=== PATIENT | female | born 1985 | race Caucasian/White ===

== ENCOUNTER 2018-06-11 01:49 | Emergency (ER) | payer SELFPAY ==
[~2018-06-11] VITALS: Ht 170.2 cm; Wt 113.4 kg
[2018-06-11 01:55] VITALS: Ht 170.2 cm; Wt 113.4 kg
[2018-06-11 03:21] VITALS: BP 139/60
== END 2018-06-11 03:22 | disposition left against medical advice (07) ==
LOC: ED 01:49
DX: R06.02 Shortness of breath (principal); R09.89 Other specified symptoms and signs involving the circulatory and respiratory systems; F41.9 Anxiety disorder, unspecified
CPT/HCPCS: 83880; 84439

== ENCOUNTER 2019-12-15 13:43 | Emergency (ER) | payer SELFPAY ==
[~2019-12-15] VITALS: Ht 170.2 cm; Wt 117.5 kg
[2019-12-15 13:56] VITALS: Ht 170.2 cm; Wt 117.5 kg
[2019-12-15 15:02] LABS: BASOPHIL % 0.8 % (0-2)
[2019-12-15 15:07] LABS: PLATELET COUNT 452 x10^3mcL (130-400); RED CELL DISTRIBUTION WIDTH 20.1 % (11.5-14.5)
[2019-12-15 15:19] LABS: rbc morphology (normal/abnorm) ABNORMAL (NORMAL)
[2019-12-15 15:20] LABS: ovalocyte/elliptocyte 1+
[2019-12-15 15:21] LABS: ALBUMIN 3.5 g/dL (3.4-5.0); ALKALINE PHOSPHATASE 83 U/L (46-116); ALT/SGPT 23 U/L (14-59); AST/SGOT 15 U/L (15-37); BILIRUBIN TOTAL 0.1 mg/dL (0.20-1.00); CALCIUM 8.2 mg/dL (8.5-10.1); CARBON DIOXIDE 25.6 mmol/L (21-32); CHLORIDE SERUM 106 mmol/L (98-107); CREATININE SERUM 0.9 mg/dL (0.6-1.0); GFR1 > 60 mL/min; GLUCOSE SERUM 115 mg/dL (74-106); POTASSIUM SERUM 3.7 mmol/L (3.5-5.1); SODIUM SERUM 141 mmol/L (136-145); TOTAL PROTEIN, SERUM 7.4 g/dL (6.4-8.2)
[2019-12-15 16:04] VITALS: BP 143/59
== END 2019-12-15 16:43 | disposition home or self-care (01) ==
LOC: ED 13:43
PROVIDERS: Emergency Medicine
DX: N39.0 Urinary tract infection, site not specified (principal); N94.6 Dysmenorrhea, unspecified; D64.9 Anemia, unspecified; N83.201 Unspecified ovarian cyst, right side
CPT/HCPCS: Q0092

== ENCOUNTER 2020-02-21 00:38 | Emergency (ER) | payer MEDICAID ==
[~2020-02-21] VITALS: Ht 172.7 cm; Wt 115.7 kg
[2020-02-21 00:39] VITALS: Ht 172.7 cm; Wt 115.7 kg
[2020-02-21 01:34] LABS: BASOPHIL % 1.1 % (0-2)
[2020-02-21 01:42] LABS: CARBON DIOXIDE 27.9 mmol/L (21-32); CHLORIDE SERUM 102 mmol/L (98-107); CREATININE SERUM 0.9 mg/dL (0.6-1.0); GFR1 > 60 mL/min; GLUCOSE SERUM 112 mg/dL (74-106); POTASSIUM SERUM 3.7 mmol/L (3.5-5.1); SODIUM SERUM 140 mmol/L (136-145)
[2020-02-21 01:47] LABS: ALBUMIN 3.6 g/dL (3.4-5.0); ALKALINE PHOSPHATASE 78 U/L (46-116); ALT/SGPT 37 U/L (14-59); AST/SGOT 21 U/L (15-37); BILIRUBIN TOTAL 0.23 mg/dL (0.20-1.00); TOTAL PROTEIN, SERUM 7.6 g/dL (6.4-8.2)
[2020-02-21 01:48] LABS: PLATELET COUNT 425 x10^3mcL (130-400)
[2020-02-21 04:21] VITALS: BP 118/56
== END 2020-02-21 04:21 | disposition home or self-care (01) ==
LOC: ED 00:38
PROVIDERS: Student in an Organized Health Care Education/Training Program
DX: D53.9 Nutritional anemia, unspecified (principal); R00.2 Palpitations; F41.9 Anxiety disorder, unspecified